=== PATIENT | male | born 1980 | race Caucasian/White ===

== ENCOUNTER 2020-07-03 02:27 | Emergency (ER) | payer BC ==
[2020-07-03] MEDS ORDERED: Morphine 4 MG/ML Syringe IVPUSH ONE (02:33)
--- NOTE | 2020-07-03 02:53 | EDM.PDOC ---
ED HPI GENERAL MEDICAL PROBLEM - General Chief Complaint: Upper Extremity Injury/Pain Stated Complaint: LEFT SHOULDER DISLOCATED Time Seen by Provider: 07/03/20 02:27 - History of Present Illness INITIAL COMMENTS - FREE TEXT/NARRATIVE: CHIEF COMPLAINT(S): Left shoulder dislocation HISTORY OF PRESENT ILLNESS: This is a 40-year-old man and with a past medical history of right shoulder dislocation who comes to the emergency department with a chief complaint of left shoulder dislocation. The patient was transferred from outside hospital given that they did not have the capability for anesthesia to perform a reduction. They did provide the patient with 250 mcg of fentanyl, Versed, and etomidate without any success. The patient states that he was just walking up his stairs and his left shoulder dislocated. He states that he is experiencing pain in his left shoulder. He states that he did have numbness in his hand earlier but that has resolved. He denies any other injury. He states that his pain is 10 out of 10 right now without any radiation of pain. He denies any relieving qualities but states it is exacerbated by any touch or movement. He was given pain medication at prior hospital with relief of pain. REVIEW OF SYSTEMS: Constitutional: Denies fever, chills. Eyes: Denies eye pain Ears, Nose, Mouth, & Throat: Denies earache Cardiovascular: Denies chest pain Respiratory: Denies shortness of breath Gastrointestinal: Denies Nausea, vomiting, diarrhea, hematochezia. Genitourinary: Denies hematuria MSK: Positive for left shoulder pain and dislocation Neurological: Denies blurred vision, numbness, tingling, weakness Psychiatric: Denies depression PAST MEDICAL HISTORY: As per history of present illness and as reviewed below otherwise noncontributory. SURGICAL HISTORY: As per history of present illness and as reviewed below otherwise noncontributory. SOCIAL HISTORY: As per history of present illness and as reviewed below otherwise noncontributory. FAMILY HISTORY: As per history of present illness and as reviewed below otherwise noncontributory. EXAMINATION OF ORGAN SYSTEMS/BODY AREAS: Constitutional: Blood pressure is 154/100, heart rate 79, respiratory rate 18 with an oxygen saturation 98% on room air. Temperature 36.7 General: Overall well-appearing man who is in no acute distress. Psychiatric: Appropriate mood and affect. Eyes: No scleral icterus or conjunctival erythema ENMT: Moist mucous membranes. No pharyngeal erythema Cardiovascular: Regular, rate, and rhythm. No gallops, murmurs, or rubs. Bilateral upper extremity pulses symmetric and intact. No peripheral edema. No JVD. Respiratory: Lungs clear to auscultation bilaterally. No wheezes, rales, or rhonchi. Gastrointestinal: Soft, non-tender, non-distended. Normoactive bowel sounds Genitourinary: No suprapubic tenderness Musculoskeletal: Decreased range of motion of the left shoulder with a minor indention. The patient is holding his elbow. Patient is in a sling. Range of motion is limited secondary to known dislocation Skin: No lesions or abrasions. Neurological: Alert, GCS 15 patient is able to move his fingers on the left side. Distal sensation is intact. MEDICAL DECISION MAKING AND COURSE IN THE ED WITH INTERPRETATION/REVIEW OF DIAGNOSTIC STUDIES: This is a 40-year-old man with a prior history of right shoulder dislocation who comes to the emergency department with left shoulder dislocation from outside hospital. I did review the patient's chart. There is a report from outside hospital showing an anterior shoulder dislocation. However the report could not be uploaded and I cannot view the images therefore I will obtain a left shoulder x-ray. We did contact anesthesia for procedural sedation. We will provide the patient with 4 mg of IV morphine for pain relief. The radiological images were viewed by myself along with reading the report from the radiologist. Left shoulder x-ray reveals an anterior dislocation of left humerus at the level of the glenohumeral joint. No definitive glenoid fracture. AC joint is unremarkable. Dislocation Reduction Procedure Note Pre-Reduction Imaging: As noted above Performed by: Myself with nursing staff Consent: Verbal consent obtained. Risks and benefits: risks, benefits and alternatives were discussed Consent given by: Patient Patient understanding: Patient states understanding of the procedure being performed Patient consent: Patient understanding of the procedure matches consent given Patient identity confirmed: verbally with patient and arm band Time out: Immediately prior to procedure a "time out" was called to verify the correct patient, procedure, equipment, customer support engineer and site/side marked as required. Location details: Left shoulder Reduction Procedure: Traction countertraction results: Post reduction alignement improved Complication: Tolerated well without complication. <2sec SHIP SCALER. Tendons intact. Post-reduction Examination: Capillary refill in the distal left upper extremity is less than 2 seconds. The patient has full range of motion of all his fingers. Sensation is intact. Post Reduction Imaging: Postreduction left shoulder dislocation x-ray reveals interval reduction of the left shoulder without any evidence of dislocation Patient was observed in the emergency department of anesthesia until he was alert and able to ambulate. I did discuss the results of the post reduction film including the Hill-Sachs deformity. He is to follow-up in [facility] in 1 week with orthopedics. He was amenable to discharge at this time and no further questions. I did send Tylenol and ibuprofen to his pharmacy for pain relief. DISPOSITION: The patient was discharged home in stable condition. The patient will follow up with orthopedics within 1 week CONDITION: Fair PROCEDURES: Left shoulder dislocation reduction FINAL IMPRESSION(S)/DIAGNOSES: 1. Acute left shoulder dislocation status post reduction 2. Acute left Hill-Sachs deformity Britton Avitia M.D. - Related Data Allergies Allergy/AdvReac Type Severity Reaction Status Date / Time Penicillins Allergy Hives Verified 07/03/20 02:40 Home Meds: Home Meds Acetaminophen [Tylenol Extra Strength] 1,000 mg PO Q6H #56 tab 07/03/20 [Rx] Ibuprofen 600 mg PO TID #21 tablet 07/03/20 [Rx] Past Medical History - Infectious Disease History Infectious Disease History: Reports: Chicken Pox - Past Surgical History GI Surgical History: Reports: Appendectomy Other Musculoskeletal Surgeries/Procedures:: hx of shoulder dislocation Social & Family History - Tobacco Use Smoking Status *Q: Never Smoker - Recreational Drug Use Recreational Drug Use: No Review of Systems - Review of Systems Review Of Systems: See Below ED EXAM, GENERAL - Physical Exam Exam: See Below Course - Vital Signs Last Recorded V/S: Last Vital Signs Temp 36.7 C 07/03/20 02:35 Pulse 89 07/03/20 03:48 Resp 18 07/03/20 03:26 BP 153/95 H 07/03/20 03:48 Pulse Ox 99 07/03/20 03:48 - Orders/Labs/Meds Orders: Active Orders 24 hr Category Date Time Status Lactated Ringers [Ringers, Lactated] 1,000 ml Med 07/03/20 03:00 Active IV ASDIRECTED Medication Orders Lactated Ringer's (Ringers, Lactated) 1,000 mls @ 125 mls/hr IV ASDIRECTED BETHANY Last Admin: 07/03/20 03:33 Dose: 125 mls/hr Documented by: [id number] Meds: Medications Generic Name Dose Route Start Last Admin Trade Name Angela PRN Reason Stop Dose Admin Lactated Ringer's 1,000 mls @ 125 mls/hr 07/03/20 03:00 07/03/20 03:33 Ringers, Lactated IV 125 mls/hr ASDIRECTED BETHANY Administration Discontinued Medications Generic Name Dose Route Start Last Admin Trade Name Angela PRN Reason Stop Dose Admin Fentanyl 100 mcg 07/03/20 02:59 07/03/20 03:01 Fentanyl IVPUSH 07/03/20 03:00 100 mcg ONETIME ONE Administration Fentanyl Confirm 07/03/20 03:00 07/03/20 03:31 Sublimaze Administered 07/03/20 03:01 Not Given Dose 100 mcg .ROUTE .STK-MED ONE Fentanyl Confirm 07/03/20 03:05 07/03/20 03:33 Sublimaze Administered 07/03/20 03:06 100 mcg Dose Administration 100 mcg .ROUTE .STK-MED ONE Ketamine HCl Confirm 07/03/20 03:07 07/03/20 03:32 Ketalar Administered 07/03/20 03:08 500 mg Dose Administration 500 mg .ROUTE .STK-MED ONE Midazolam HCl Confirm 07/03/20 03:05 07/03/20 03:32 Versed 1 Mg/Ml Administered 07/03/20 03:06 2 mg Dose Administration 2 mg .ROUTE .STK-MED ONE Morphine Sulfate 4 mg 07/03/20 02:33 07/03/20 02:50 Morphine IVPUSH 07/03/20 02:34 4 mg ONETIME ONE Administration Propofol Confirm 07/03/20 03:05 07/03/20 03:32 Diprivan 20 Ml Administered 07/03/20 03:06 400 mg Dose Administration 400 mg .ROUTE .STK-MED ONE Departure - Departure Time of Disposition: 04:24 Disposition: Home, Self-Care 01 Condition: Fair Clinical Impression: Hill Sachs deformity, left Shoulder dislocation Qualifiers: Encounter type: initial encounter Laterality: left Qualified Code(s): S43.005A - Unspecified dislocation of left shoulder joint, initial encounter - Discharge Information *PRESCRIPTION DRUG MONITORING PROGRAM REVIEWED*: No *COPY OF PRESCRIPTION DRUG MONITORING REPORT IN PATIENT LEWIS: No Prescriptions: Ibuprofen 600 mg PO TID #21 tablet Acetaminophen [Tylenol Extra Strength] 1,000 mg PO Q6H #56 tab Instructions: Shoulder Dislocation, How To Use a Sling, [id number], Shoulder Dislocation, [id number] Referrals: PCP,None [Primary Care Provider] - Amilcar Harman MD [Physician] - Forms: ED Department Discharge, ED Return to Work/School Form Additional Instructions: The patient is informed of any results of their evaluation and diagnostic workup and all questions are answered. They are given discharge instructions and return precautions. The patient is stable for discharge. The patient states they understand and agree with the plan and that they will return if their symptoms get worse or if they have any new concerns. The following information is given to patients seen in the emergency department who are being discharged to home. This information is to outline your options f or follow-up care. We provide all patients seen in our emergency department with a follow-up referral. The need for follow-up, as well as the timing and circumstances, are variable depending upon the specifics of your emergency department visit. If you don't have a primary care physician on staff, we will provide you with a referral. We always advise you to contact your personal physician following an emergency department visit to inform them of the circumstance of the visit and for follow-up with them and/or the need for any referrals to a consulting specialist. The emergency department will also refer you to a specialist when appropriate. This referral assures that you have the opportunity for follow-up care with a specialist. All of these measure are taken in an effort to provide you with optimal care, which includes your follow-up. Under all circumstances we always encourage you to contact your private physician who remains a resource for coordinating your care. When calling for follow-up care, please make the office aware that this follow-up is from your recent emergency room visit. If for any reason you are refused follow-up, please contact the [facility] Emergency Department at and asked to speak to the emergency department charge nurse. [facility] Professional [address], [address] [place] [address] Sepsis Event Note (ED) - Evaluation Sepsis Screening Result: No Definite Risk - Focused Exam Vital Signs: Vital Signs Temp Pulse Resp BP Pulse Ox 07/03/20 03:48 89 153/95 H 99 07/03/20 03:40 93 157/90 H 97 07/03/20 03:31 89 137/90 98 07/03/20 03:26 81 18 144/87 H 87 L 07/03/20 03:21 93 14 164/109 H 92 L 07/03/20 02:35 36.7 C 79 18 154/100 H 98 - My Orders Last 24 Hours: My Active Orders 07/03/20 03:00 Lactated Ringers [Ringers, Lactated] 1,000 ml IV ASDIRECTED - Assessment/Plan Last 24 Hours: My Active Orders 07/03/20 03:00 Lactated Ringers [Ringers, Lactated] 1,000 ml IV ASDIRECTED
[2020-07-03] MEDS ORDERED: fentaNYL 50 MCG/ML SDV IVPUSH ONE (02:59)
[2020-07-03] MEDS ORDERED: fentaNYL 100 MCG/2 ML SDV ONE ×2 (03:00→03:05)
[2020-07-03] MEDS ORDERED: Lactated Ringers 1,000 ML IV SCH (03:00)
[2020-07-03] MEDS ORDERED: Propofol 200 MG/20 ML SDV ONE (03:05)
[2020-07-03] MEDS ORDERED: Midazolam 1 MG/ML 2 ML SDV ONE (03:05)
[2020-07-03] MEDS ORDERED: Ketamine 500 mg/10 ML MDV ONE (03:07)
--- NOTE | 2020-07-03 03:10 | CR ---
Indication: Dislocated left shoulder Technique: Two views Comparison: None Findings: There is an anterior dislocation of the left humerus at the level of the glenohumeral joint. No definite glenoid fracture. Acromioclavicular joint unremarkable. Dictated by Amor Kinsey MD @ Jul 03 2020 3:07AM Signed by Dr. Amor Kinsey @ Jul 03 2020 3:09AM
--- NOTE | 2020-07-03 04:00 | PCM.PREANE ---
Preanesthetic Assessment - Procedure Proposed Procedure: Left shoulder relocation - Anesthesia/Transfusion/Family Hx Anesthesia History: Prior Anesthesia Without Reaction Family History of Anesthesia Reaction: No - Review of Systems General: No Symptoms Pulmonary: No Symptoms Cardiovascular: No Symptoms Gastrointestinal: No Symptoms Neurological: No Symptoms Other: Reports: None - Physical Assessment NPO Status Date: 07/02/20 NPO Status Time: 17:30 Vital Signs: Last Vital Signs Temp 36.7 C 07/03/20 02:35 Pulse 89 07/03/20 03:48 Resp 18 07/03/20 03:26 BP 153/95 H 07/03/20 03:48 Pulse Ox 99 07/03/20 03:48 Weight: 106.594 kg ASA Class: 2 Mental Status: Alert & Oriented x3 Airway Class: Mallampati = 1 Dentition: Reports: Normal Dentition Thyro-Mental Finger Breadths: 3 Mouth Opening Finger Breadths: 3 ROM/Head Extension: Full Lungs: Clear to Auscultation, Normal Respiratory Effort Cardiovascular: Regular Rate, Regular Rhythm - Allergies Allergies/Adverse Reactions: Allergies Allergy/AdvReac Type Severity Reaction Status Date / Time Penicillins Allergy Hives Verified 07/03/20 02:40 - Blood Blood Available: No - Anesthesia Plan Pre-Op Medication Ordered: None - Acknowledgements Anesthesia Type Planned: MAC Pt an Appropriate Candidate for the Planned Anesthesia: Yes Alternatives and Risks of Anesthesia Discussed w Pt/Guardian: Yes Pt/Guardian Understands and Agrees with Anesthesia Plan: Yes PreAnesthesia Questionnaire - Infectious Disease History Infectious Disease History: Reports: Chicken Pox - Past Surgical History GI Surgical History: Reports: Appendectomy Other Musculoskeletal Surgeries/Procedures:: hx of shoulder dislocation - SUBSTANCE USE Smoking Status *Q: Never Smoker Recreational Drug Use History: No - HOME MEDS Home Medications: Home Meds . [No Known Home Meds] 07/03/20 [History] - CURRENT (IN HOUSE) MEDS Current Meds: Current Medications Lactated Ringer's (Ringers, Lactated) 1,000 mls @ 125 mls/hr IV ASDIRECTED BETHANY Last Admin: 07/03/20 03:33 Dose: 125 mls/hr Documented by: Discontinued Medications Fentanyl (Fentanyl) 100 mcg IVPUSH ONETIME ONE Stop: 07/03/20 03:00 Last Admin: 07/03/20 03:01 Dose: 100 mcg Documented by: Fentanyl (Sublimaze) Confirm Administered Dose 100 mcg .ROUTE .STK-MED ONE Stop: 07/03/20 03:01 Last Admin: 07/03/20 03:31 Dose: Not Given Documented by: Fentanyl (Sublimaze) Confirm Administered Dose 100 mcg .ROUTE .STK-MED ONE Stop: 07/03/20 03:06 Last Admin: 07/03/20 03:33 Dose: 100 mcg Documented by: Ketamine HCl (Ketalar) Confirm Administered Dose 500 mg .ROUTE .STK-MED ONE Stop: 07/03/20 03:08 Last Admin: 07/03/20 03:32 Dose: 500 mg Documented by: Midazolam HCl (Versed 1 Mg/Ml) Confirm Administered Dose 2 mg .ROUTE .STK-MED ONE Stop: 07/03/20 03:06 Last Admin: 07/03/20 03:32 Dose: 2 mg Documented by: Morphine Sulfate (Morphine) 4 mg IVPUSH ONETIME ONE Stop: 07/03/20 02:34 Last Admin: 07/03/20 02:50 Dose: 4 mg Documented by: Propofol (Diprivan 20 Ml) Confirm Administered Dose 400 mg .ROUTE .STK-MED ONE Stop: 07/03/20 03:06 Last Admin: 07/03/20 03:32 Dose: 400 mg Documented by:
--- NOTE | 2020-07-03 04:19 | CR ---
Indication: Postreduction Technique: One view Comparison: Left shoulder 07/03/2020 Findings: Interval reduction of the left shoulder with no evidence of dislocation on this single image. Hill-Sachs deformity noted. Dictated by Amor Kinsey MD @ Jul 03 2020 4:17AM Signed by Dr. Amor Kinsey @ Jul 03 2020 4:18AM
--- NOTE | 2020-07-03 04:25 | PCM48HPAN ---
Post Anesthesia Note - EVALUATION WITHIN 48HRS OF ANESTHETIC Vital Signs in Normal Range: Yes Patient Participated in Evaluation: Yes Respiratory Function Stable: Yes Airway Patent: Yes Cardiovascular Function Stable: Yes Hydration Status Stable: Yes Pain Control Satisfactory: Yes Nausea and Vomiting Control Satisfactory: Yes Mental Status Recovered: Yes Vital Signs: Last Vital Signs Temp 36.7 C 07/03/20 02:35 Pulse 89 07/03/20 03:48 Resp 18 07/03/20 03:26 BP 153/95 H 07/03/20 03:48 Pulse Ox 99 07/03/20 03:48
== END 2020-07-03 04:40 | disposition home or self-care (01) ==
LOC: MW.ED 02:27
DX: S43.015A Anterior dislocation of left humerus, initial encounter (principal); M21.822 Other specified acquired deformities of left upper arm; X58.XXXA Exposure to other specified factors, initial encounter
CPT/HCPCS: 23650; 73020; 96361; 96374; 99283; J2250; J2270; J2704; J3010; J7120; 01620